=== PATIENT | female | born 1965 | race Caucasian/White ===

== ENCOUNTER 2020-04-24 14:13 | Emergency (ER) | payer OTHER ==
[~2020-04-24 14:13] MED LIST: ADMELOG SO100 UNIT/1 SC; ALPRAZOLAM0.5 MG PO; AMLODIPINE BES2.5 MG PO; AMMONIUM LACTA225 GM TOP; AMOXICILLIN500 MG PO; AMOXICILLIN875 MG PO; ANTIVERT 25MG T25 MG PO; ASPIR 8181 MG PO; AZITHROMYCIN250 MG PO; BASAGLAR SQ; BUSPIRONE HCL15 MG PO; BUSPIRONE HCL7.5 MG PO; CEFDINIR300 MG PO; CLARITIN10 MG PO; CLEOCIN 150MG150 MG PO; CORGARD40 MG PO; COZAAR 50MG TAB50 MG PO; EFFER-K 10 MEQ10 MEQ PO; FIORICET TAB1 EA PO; FLONASE 0.05% N16 GM; FLORANEX GRANU1 EACH PO; FLUOXETINE HCL40 MG PO; GABAPENTIN800 MG PO; GLUCOPHAGE 500500 MG PO; HUMALOG100 UNIT/2 SQ; HUMALOG100 UNIT/3 SQ; HYDROCODON-ACE1 EAC4 PO; IBUPROFEN600 MG PO; IMDUR ER TAB 3030 MG PO; K-DUR TAB 10 M10 MEQ PO; KEFLEX CAP 500500 MG PO; KLOR-CON M1010 MEQ PO; LACTULOSE10 GM/151 PO; LASIX TAB 20 MG20 MG PO; LASIX40 MG PO; LEVEMIR IN100 UNITS/ SQ; LEVOCETIRIZINE D5 MG PO; LIPITOR TAB 2020 MG PO; MAXIMUM DAILY1 EAC1 PO; METOPROLOL SUCC25 MG PO; MILK THISTLE175 M1 PO; MIRALAX PACK 171 PKT PO; NEURONTIN 400400 MG PO; NIACIN ER500 MG PO; NITROGLYCERIN0.4 MG SL; NORVASC 5 MG TAB5 MG PO; OMNICEF 300 MG300 MG PO; PHENERGAN 12.12.5 M1 PO; PHENERGAN 25 MG25 M1 PO; PHENERGAN12.5 MG PR; PLAVIX 75 MG TA75 MG PO; PROMETHAZINE HC25 M1 PO; PROTONIX 40 MG40 M1 PO; PROZAC20 MG PO; PYRIDIUM PO; PYRIDIUM100 MG PO; RANEXA500 MG PO; RANITIDINE HCL150 M1 PO; RANOLAZINE ER1000 MG PO; SINGULAIR10 MG PO; THERAGRAN TAB1 EA PO; TOPROL XL 25 MG25 MG PO; TOPROL XL 50 MG50 MG PO; TOUJEO SC; TRESIBA FL100 UNIT/1 SQ; TYLENOL W/CODEIN1 E1 PO; VOLTAREN100 GM TP; ZETIA 10 MG TAB10 MG PO; ZOFRAN ODT 4 MG4 MG PO; ZOFRAN ODT8 MG PO; ZOFRAN4 MG PO; ZYRTEC10 M3 PO
[2020-04-24] MEDS ORDERED: HYDROCODON-ACE1 EAC4 PO (17:02)
[2020-04-24] MEDS ORDERED: BACTROBAN OINT22 GM TOP (17:08)
[2020-04-24] MEDS ORDERED: BACTRIM DS TAB1 EACH PO (17:08)
== END 2020-04-24 17:20 | disposition home or self-care (01) ==
LOC: ER1 14:13
DX: L02.811 Cutaneous abscess of head [any part, except face] (principal); J34.0 Abscess, furuncle and carbuncle of nose; E11.9 Type 2 diabetes mellitus without complications; I25.10 Atherosclerotic heart disease of native coronary artery without angina pectoris; Z90.710 Acquired absence of both cervix and uterus
CPT/HCPCS: 99282

== ENCOUNTER 2020-05-18 12:42 | Emergency (ER) | payer OTHER ==
[~2020-05-18 12:42] MED LIST changes: +BACTRIM DS TAB1 EACH PO; +BACTROBAN OINT22 GM TOP
[2020-05-18] MEDS ORDERED: MOBIC15 MG PO (13:58)
== END 2020-05-18 14:54 | disposition home or self-care (01) ==
LOC: ER1 12:42
DX: S93.401A Sprain of unspecified ligament of right ankle, initial encounter (principal); S80.01XA Contusion of right knee, initial encounter; M17.11 Unilateral primary osteoarthritis, right knee; I25.2 Old myocardial infarction; I25.10 Atherosclerotic heart disease of native coronary artery without angina pectoris; E11.9 Type 2 diabetes mellitus without complications; Z90.49 Acquired absence of other specified parts of digestive tract; Z79.82 Long term (current) use of aspirin; Z79.899 Other long term (current) drug therapy; W19.XXXA Unspecified fall, initial encounter; X50.9XXA Other and unspecified overexertion or strenuous movements or postures, initial encounter
CPT/HCPCS: 73562; 73610; 99283

== ENCOUNTER 2020-07-02 12:06 | Emergency (ER) | payer OTHER ==
[~2020-07-02 12:06] MED LIST changes: +MOBIC15 MG PO
[2020-07-02 13:04] LABS: HEMOGLOBIN 12.4 gm/dl (12.3-15.3); RED BLOOD COUNT 4.07 M/UL (4.00-5.10); WHITE BLOOD COUNT 5.2 K/UL (4.5-11.0)
[2020-07-02 13:26] LABS: BUN/CREATININE RATIO 30 (0-10)
[2020-07-02] MEDS ORDERED: MECLIZINE HCL25 MG PO (15:53)
[2020-07-02] MEDS ORDERED: CEPHALEXIN500 MG PO (15:53)
[2020-07-02] MEDS ORDERED: ONDANSETRON ODT4 MG SL (15:53)
== END 2020-07-02 16:44 | disposition home or self-care (01) ==
LOC: ER1 12:06
PROVIDERS: Physician Assistant
DX: G43.909 Migraine, unspecified, not intractable, without status migrainosus (principal); N39.0 Urinary tract infection, site not specified; E11.9 Type 2 diabetes mellitus without complications; I25.10 Atherosclerotic heart disease of native coronary artery without angina pectoris; I11.9 Hypertensive heart disease without heart failure; Z90.710 Acquired absence of both cervix and uterus; Z90.49 Acquired absence of other specified parts of digestive tract; Z88.8 Allergy status to other drugs, medicaments and biological substances; Z85.3 Personal history of malignant neoplasm of breast
CPT/HCPCS: 80053; 81001; 83690; 85025; 96374; 96375; 99284; J0595; J1200; J1642; J1885; J2765; J7030

== ENCOUNTER 2020-07-30 13:50 | Emergency (ER) | payer OTHER ==
[~2020-07-30 13:50] MED LIST changes: +CEPHALEXIN500 MG PO; +MECLIZINE HCL25 MG PO; +ONDANSETRON ODT4 MG SL
[2020-07-30 14:36] LABS: HEMOGLOBIN 14.8 gm/dl (12.3-15.3); RED BLOOD COUNT 4.74 M/UL (4.00-5.10); WHITE BLOOD COUNT 6.4 K/UL (4.5-11.0)
[2020-07-30 15:07] LABS: BUN/CREATININE RATIO 18 (0-10)
== END 2020-07-30 17:53 | disposition home or self-care (01) ==
LOC: ER1 13:50
PROVIDERS: Physician Assistant
DX: R07.89 Other chest pain (principal); Z20.822 Contact with and (suspected) exposure to COVID-19; Z90.49 Acquired absence of other specified parts of digestive tract; Z79.82 Long term (current) use of aspirin; Z79.899 Other long term (current) drug therapy
CPT/HCPCS: 71045; 80053; 82550; 82553; 83874; 84484; 85025; 93005; 99285; U0002

== ENCOUNTER 2020-08-05 07:29 | Emergency (ER) | payer OTHER | END 2020-08-05 09:40 | disposition home or self-care (01) | LOC: ER1 07:29 | DX: M72.2 Plantar fascial fibromatosis (principal); E11.41 Type 2 diabetes mellitus with diabetic mononeuropathy; G56.93 Unspecified mononeuropathy of bilateral upper limbs; M19.90 Unspecified osteoarthritis, unspecified site; Z85.3 Personal history of malignant neoplasm of breast; Z90.710 Acquired absence of both cervix and uterus; Z79.01 Long term (current) use of anticoagulants; Z79.02 Long term (current) use of antithrombotics/antiplatelets; Z79.899 Other long term (current) drug therapy | CPT/HCPCS: 73610; 96372; 99283; J1885 ==

== ENCOUNTER 2020-08-24 18:40 | Emergency (ER) | payer OTHER ==
[2020-08-24 19:15] LABS: HEMOGLOBIN 13.2 gm/dl (12.3-15.3); RED BLOOD COUNT 4.26 M/UL (4.00-5.10); WHITE BLOOD COUNT 5.2 K/UL (4.5-11.0)
[2020-08-24 19:40] LABS: BUN/CREATININE RATIO 22 (0-10)
[2020-08-24] MEDS ORDERED: CYCLOBENZAPRINE10 MG PO (23:54)
== END 2020-08-25 00:40 | disposition home or self-care (01) ==
LOC: ER1 18:40
PROVIDERS: Physician Assistant
DX: R07.89 Other chest pain (principal); E11.9 Type 2 diabetes mellitus without complications; I10 Essential (primary) hypertension; E78.5 Hyperlipidemia, unspecified; I25.10 Atherosclerotic heart disease of native coronary artery without angina pectoris; Z85.3 Personal history of malignant neoplasm of breast; Z79.899 Other long term (current) drug therapy
CPT/HCPCS: 71045; 80053; 81001; 82550; 82553; 83874; 83880; 84484; 85025; 85379; 87086; 93005; 96374; 99285; J1885

== ENCOUNTER 2020-09-07 00:48 | Emergency (ER) | payer OTHER ==
[~2020-09-07 00:48] MED LIST changes: +CYCLOBENZAPRINE10 MG PO
[2020-09-07 01:47] LABS: HEMOGLOBIN 12.3 gm/dl (12.3-15.3); RED BLOOD COUNT 3.93 M/UL (4.00-5.10); WHITE BLOOD COUNT 6.1 K/UL (4.5-11.0)
[2020-09-07 02:13] LABS: BUN/CREATININE RATIO 23 (0-10)
== END 2020-09-07 05:20 | disposition home or self-care (01) ==
LOC: ER1 00:48
PROVIDERS: Emergency Medicine
DX: E11.649 Type 2 diabetes mellitus with hypoglycemia without coma (principal); Z85.3 Personal history of malignant neoplasm of breast; Z79.4 Long term (current) use of insulin
CPT/HCPCS: 71045; 80053; 81001; 82009; 82962; 83690; 83735; 85025; 99284

== ENCOUNTER 2020-10-08 09:38 | Emergency (ER) | payer OTHER ==
[2020-10-08 11:54] LABS: HEMOGLOBIN 12.9 gm/dl (12.3-15.3); RED BLOOD COUNT 4.15 M/UL (4.00-5.10); WHITE BLOOD COUNT 6.4 K/UL (4.5-11.0)
[2020-10-08 12:21] LABS: BUN/CREATININE RATIO 32 (0-10)
[2020-10-08] MEDS ORDERED: MACROBID 100 M100 M1 PO (15:01)
[2020-10-08] MEDS ORDERED: REGLAN5 MG PO (15:01)
[2020-12-18] MEDS ORDERED: MACROBID 100 M100 MG PO (09:19)
== END 2020-10-08 15:16 | disposition home or self-care (01) ==
LOC: ER1 09:38
PROVIDERS: Student in an Organized Health Care Education/Training Program
DX: S09.90XA Unspecified injury of head, initial encounter (principal); N39.0 Urinary tract infection, site not specified; R53.1 Weakness; I10 Essential (primary) hypertension; E11.9 Type 2 diabetes mellitus without complications; Z88.1 Allergy status to other antibiotic agents; Z88.8 Allergy status to other drugs, medicaments and biological substances; Z79.899 Other long term (current) drug therapy; Z79.82 Long term (current) use of aspirin; Z20.822 Contact with and (suspected) exposure to COVID-19; W19.XXXA Unspecified fall, initial encounter
CPT/HCPCS: 0240U; 70450; 71045; 72125; 73564; 80053; 81001; 82140; 82550; 82553; 83605; 83690; 83735; 83874; 84100; 84439; 84443; 84484; 84702; 85025; 85652; 86140; 93005; 96374; 96375; 99284; J1885; J2765

== ENCOUNTER 2020-10-26 20:34 | Emergency (ER) | payer OTHER ==
[~2020-10-26 20:34] MED LIST changes: +MACROBID 100 M100 M1 PO; +REGLAN5 MG PO
[2020-10-26 20:51] LABS: HEMOGLOBIN 13.1 gm/dl (12.3-15.3); RED BLOOD COUNT 4.23 M/UL (4.00-5.10); WHITE BLOOD COUNT 5.8 K/UL (4.5-11.0)
[2020-10-26 21:12] LABS: BUN/CREATININE RATIO 26 (0-10)
[2020-12-18] MEDS ORDERED: MACROBID 100 M100 MG PO (09:19)
== END 2020-10-26 23:00 | disposition home or self-care (01) ==
LOC: ER1 20:34
PROVIDERS: Physician Assistant
DX: R07.9 Chest pain, unspecified (principal); E11.9 Type 2 diabetes mellitus without complications; Z85.3 Personal history of malignant neoplasm of breast; Z79.01 Long term (current) use of anticoagulants; Z79.02 Long term (current) use of antithrombotics/antiplatelets; Z79.899 Other long term (current) drug therapy
CPT/HCPCS: 71045; 80053; 82550; 82553; 83690; 83874; 84484; 85025; 93005; 99285

== ENCOUNTER 2020-11-01 10:04 | Emergency (ER) | payer OTHER ==
[2020-11-01 11:49] LABS: RED BLOOD COUNT 5.08 M/UL (4.00-5.10); WHITE BLOOD COUNT 8.5 K/UL (4.5-11.0)
[2020-11-01 11:54] LABS: HEMOGLOBIN 15.8 gm/dl (12.3-15.3)
[2020-11-01 12:11] LABS: BUN/CREATININE RATIO 25 (0-10)
[2020-11-01] MEDS ORDERED: BENTYL 20MG TAB20 MG PO (15:33)
[2020-11-01] MEDS ORDERED: ZOFRAN4 MG PO (15:33)
[2020-12-18] MEDS ORDERED: MACROBID 100 M100 MG PO (09:19)
== END 2020-11-01 15:30 | disposition home or self-care (01) ==
LOC: ER1 10:04
PROVIDERS: Physician Assistant
DX: R10.9 Unspecified abdominal pain (principal); R10.812 Left upper quadrant abdominal tenderness; E11.9 Type 2 diabetes mellitus without complications; Z90.710 Acquired absence of both cervix and uterus
CPT/HCPCS: 80053; 81001; 83690; 85025; 99284; Q9967

== ENCOUNTER 2020-11-21 20:35 | Emergency (ER) | payer OTHER ==
[~2020-11-21 20:35] MED LIST changes: +BENTYL 20MG TAB20 MG PO
== END 2020-11-21 23:50 | disposition home or self-care (01) ==
LOC: ER1 20:35
DX: S91.311A Laceration without foreign body, right foot, initial encounter (principal); E11.9 Type 2 diabetes mellitus without complications; Z90.710 Acquired absence of both cervix and uterus; Z23 Encounter for immunization; W26.8XXA Contact with other sharp object(s), not elsewhere classified, initial encounter
CPT/HCPCS: 11042; 73630; 90471; 90715; 99283

== ENCOUNTER 2020-12-22 09:15 | Emergency (ER) | payer OTHER ==
[~2020-12-22 09:15] MED LIST changes: +MACROBID 100 M100 MG PO
[2020-12-22 10:08] LABS: HEMOGLOBIN 14.1 gm/dl (12.3-15.3); RED BLOOD COUNT 4.58 M/UL (4.00-5.10); WHITE BLOOD COUNT 5.1 K/UL (4.5-11.0)
[2020-12-22 10:42] LABS: BUN/CREATININE RATIO 26 (0-10)
[2020-12-22] MEDS ORDERED: ASPIRIN CHEWABL81 MG PO (13:57)
[2020-12-22] MEDS ORDERED: NITROSTAT0.4 MG SL (13:57)
== END 2020-12-22 15:35 | disposition home or self-care (01) ==
LOC: ER1 09:15
PROVIDERS: Emergency Medicine
DX: R07.9 Chest pain, unspecified (principal); K22.8 Other specified diseases of esophagus; M19.90 Unspecified osteoarthritis, unspecified site; E11.65 Type 2 diabetes mellitus with hyperglycemia; Z87.19 Personal history of other diseases of the digestive system; Z85.3 Personal history of malignant neoplasm of breast
CPT/HCPCS: 71045; 80053; 82550; 82553; 83874; 84484; 85025; 85379; 93005; 99285; Q9967

== ENCOUNTER 2021-03-24 18:34 | Emergency (ER) | payer OTHER ==
[~2021-03-24 18:34] MED LIST changes: +ASPIRIN CHEWABL81 MG PO; +NITROSTAT0.4 MG SL
[2021-03-25] MEDS ORDERED: MUCINEX DM ER1 EACH PO (00:26)
== END 2021-03-25 00:50 | disposition home or self-care (01) ==
LOC: ER1 18:34
DX: J06.9 Acute upper respiratory infection, unspecified (principal); J32.9 Chronic sinusitis, unspecified; I25.10 Atherosclerotic heart disease of native coronary artery without angina pectoris; I51.9 Heart disease, unspecified; E11.9 Type 2 diabetes mellitus without complications; F17.210 Nicotine dependence, cigarettes, uncomplicated; Z88.1 Allergy status to other antibiotic agents
CPT/HCPCS: 71045; 99283; U0002